=== PATIENT | female | born 1965 | race Caucasian/White ===

== ENCOUNTER → 2017-01-28 | Outpatient (CLI) | payer MEDICARE ==
--- NOTE | 2017-01-28 13:03 | MR ---
EXAMINATION TYPE: MR brain wo/w con DATE OF EXAM: 01/28/2017 COMPARISON: 03/25/2016 HISTORY: white matter changes, short term memory loss TECHNIQUE: Multiplanar, multisequence images of the brain and brainstem is performed without and with IV contras t, utilizing 7 mL intravenous Gadavist . FINDINGS: Diffusion weighted images demonstrate no evidence of a recent infarct or other diffusion ab normality. There is no extra-axial fluid collection or significant white matter signal abnormality. The ventricular system and cisternal spaces are normal in size and appearance. The brain volume is age appropriate. Midline structures demonstrate normal morphology. The craniocervical junction appears within normal limits. Post contrast images demonstrate no abnormal enhancement. Changes of chronic sinusitis noted. Areas of abnormal signal the basal ganglia suggest tiny remote lacunar infarct or prominent Virchow-R obin spaces. WHITE MATTER: There are approximately 40 areas of abnormal signal within the white matter. All measure 5 mm or less. No enhancing lesions. No definite lesions perpendicular to the ventricular system. No callosal lesions. IMPRESSION: 1. Stable nonspecific white matter changes. Differential diagnosis includes remote microvascular isch emia or demyelinating disease. Correlate clinically.
== END | disposition home or self-care (01) ==
LOC: RADMRIMAIN 11:45
PROVIDERS: ATTEND Nurse Practitioner Acute Care
DX: R90.82 White matter disease, unspecified (principal)
CPT/HCPCS: 70553; A9581

== ENCOUNTER → 2017-01-28 | Outpatient (CLI) | payer MEDICARE ==
[2017-01-28 13:10] LABS: Basophils # (A) 0.1 k/uL (0-0.2); Basophils % (A) 1 %; CH 31.4; CHCM 32.9; Eosinophils # (A) 0.2 k/uL (0-0.7); Eosinophils % (A) 2 %; HCT 45.2 % (34.0-46.0); HDW 2.51; HGB 15.1 gm/dL (11.4-16.0); Luc # (Auto) 0.13; Luc % (Auto) 1; Lymphocytes # (A) 1.6 k/uL (1.0-4.8); Lymphocytes % (A) 13 %; MCH 31.9 pg (25.0-35.0); MCHC 33.4 g/dL (31.0-37.0); MCV 95.7 fL (80.0-100.0); Mean Platelet Volume 8.1; Monocytes # (A) 0.5 k/uL (0-1.0); Monocytes % (A) 4 %; Neutrophils # (A) 9.8 k/uL (1.3-7.7); Neutrophils % (A) 80 %; RBC 4.73 m/uL (3.80-5.40); RDW 13.7 % (11.5-15.5); WBC 12.3 k/uL (3.8-10.6); WBC (Perox) 12.77
[2017-01-28 13:19] LABS: ALT 69 U/L (9-52); AST 37 U/L (14-36); Alkaline Phosphatase 120 U/L (38-126); Anion Gap 10 mmol/L; Blood Urea Nitrogen 17 mg/dL (7-17); Calcium 9.4 mg/dL (8.4-10.2); Carbon Dioxide 22 mmol/L (22-30); Chloride 109 mmol/L (98-107); Glucose 105 mg/dL (74-99); Non-African American GFR(MDRD) >60 (>60 ml/min/1.73 sqM); Potassium 4.3 mmol/L (3.5-5.1); Sodium 141 mmol/L (137-145); Total Bilirubin 0.2 mg/dL (0.2-1.3)
[2017-01-28 14:07] LABS: Vitamin B12 482 pg/mL (239-931)
== END | disposition home or self-care (01) ==
LOC: LABWHC1 12:41
PROVIDERS: ATTEND Nurse Practitioner Acute Care
DX: E55.9 Vitamin D deficiency, unspecified (principal); R41.3 Other amnesia
CPT/HCPCS: 36415; 80053; 82306; 82607; 84207; 84439; 84443; 84481; 85025

== ENCOUNTER 2020-11-11 10:57 | Emergency (ER) | payer MEDICARE ==
[2020-11-11 11:03] VITALS: BP 143/75; PULSE 96; RESP 18; TEMP 98
--- NOTE | 2020-11-11 11:20 | ED ---
General Adult HPI - General Chief complaint: Psychiatric Symptoms Stated complaint: Mental Health Time Seen by Provider: 11/11/20 11:00 Source: patient, RN notes reviewed, old records reviewed Mode of arrival: ambulatory Limitations: no limitations - History of Present Illness Initial comments: 55-year-old female sent from the primary care physician for psychiatric evaluation. Patient has not been sleeping. She had tested positive for methadone and barbiturates which she is not prescribed. She denies an intentional misuse of medication. She has no suicidal or homicidal thoughts but she has pressured speech and has not been eating or drinking over the past several days. She was sent for evaluation of manic episode. - Related Data Home Medications Medication Instructions Recorded Confirmed Atorvastatin [Lipitor] 80 mg PO DAILY 01/29/14 05/20/14 Clopidogrel [Plavix] 75 mg PO DAILY 01/29/14 05/21/14 Nitroglycerin Sl Tabs [Nitrostat] 0 mg SUBLINGUAL DIRECTED PRN 01/29/14 05/21/14 PARoxetine [Paxil] 20 mg PO DAILY 01/29/14 05/21/14 QUEtiapine FUMARATE [SEROquel XR] 75 mg PO HS 01/29/14 05/21/14 Aspirin 81 mg PO DAILY 05/20/14 05/21/14 Previous Rx's Medication Instructions Recorded Metoprolol Tartrate [Lopressor] 12.5 mg PO BID #0 02/02/14 Omeprazole [PriLOSEC] 20 mg PO AC-BRKFST #30 cap 02/02/14 Ferrous Sulfate [Feosol] 325 mg PO BID #60 tablet 02/03/14 Ibuprofen [Motrin] 600 mg PO Q6HR PRN #30 tab 05/21/14 Allergies Allergy/AdvReac Type Severity Reaction Status Date / Time codeine Allergy Nausea & Verified 11/11/20 10:58 Vomiting hydrocodone bitartrate Allergy Nausea & Verified 11/11/20 10:58 [From Vicodin] Vomiting Review of Systems ROS Statement: Those systems with pertinent positive or pertinent negative responses have been documented in the HPI. ROS Other: All systems not noted in ROS Statement are negative. Past Medical History Past Medical History: Chest Pain / Angina, GERD/Reflux, GI Bleed, Hyperlipidemia, Hypertension, Myocardial Infarction (HI) Last Myocardial Infarction Date:: 10/2011 History of Any Multi-Drug Resistant Organisms: None Reported Past Surgical History: Heart Catheterization With Stent Additional Past Surgical History / Comment(s): removed half of stomach, cauterizations for bleeding Past Anesthesia/Blood Transfusion Reactions: No Reported Reaction, Blood Transfusion Reaction Date of Last Stent Placement:: 10/2011 Past Psychological History: Anxiety, Depression Smoking Status: Current every day smoker Past Alcohol Use History: None Reported Past Drug Use History: Marijuana - Past Family History Mother Family Medical History: Diabetes Mellitus Additional Family Medical History / Comment(s): aneurysms in back Father Additional Family Medical History / Comment(s): PVD Sister(s) Family Medical History: Cancer General Exam Limitations: no limitations General appearance: alert, anxious Head exam: Present: atraumatic, normocephalic Eye exam: Present: normal appearance, PERRL Neck exam: Present: normal inspection. Absent: tenderness, meningismus Respiratory exam: Present: normal lung sounds bilaterally. Absent: respiratory distress, wheezes Cardiovascular Exam: Present: regular rate, normal rhythm GI/Abdominal exam: Present: soft. Absent: distended, tenderness, guarding Extremities exam: Present: normal inspection, normal capillary refill. Absent: pedal edema Neurological exam: Present: alert, oriented X3 Psychiatric exam: Present: anxious, manic. Absent: suicidal ideation Skin exam: Present: warm, dry, intact Course Vital Signs 11/11/20 10:58 Temperature 98 F Pulse Rate 96 Respiratory 18 Rate Blood Pressure 143/75 O2 Sat by Pulse 100 Oximetry - Reevaluation(s) Reevaluation #1: 11/11/20 11:20 Patient cleared for EPS EKG Findings - EKG Comments: EKG Findings:: EKG: Normal sinus rhythm, rate of 72, OH interval 1:30, QRS duration 84, QTC [address] segment elevation. Medical Decision Making - Medical Decision Making 55-year-old female presenting for psychiatric evaluation, manic episode. Patient is alert, able to give detailed history. She had been seen by EPS and felt to be safe for discharge. She is not suicidal or homicidal. She will continue to follow with her primary care physician. - Lab Data Lab Results 11/11/20 Range/Units 11:36 Urine Opiates Screen Not Detected (NotDetected) Ur Oxycodone Screen Not Detected (NotDetected) Urine Methadone Screen Not Detected (NotDetected) Ur Propoxyphene Screen Not Detected (NotDetected) Ur Barbiturates Screen Detected H (NotDetected) U Tricyclic Antidepress Detected H (NotDetected) Ur Phencyclidine Scrn Not Detected (NotDetected) Ur Amphetamines Screen Not Detected (NotDetected) U Methamphetamines Scrn Not Detected (NotDetected) U Benzodiazepines Scrn Detected H (NotDetected) Urine Cocaine Screen Not Detected (NotDetected) U Marijuana (THC) Screen Detected H (NotDetected) Disposition Clinical Impression: Acute anxiety, Bipolar disorder Disposition: HOME SELF-CARE Condition: Fair Instructions (If sedation given, give patient instructions): Anxiety (ED), Mood Disorders (ED) Is patient prescribed a controlled substance at d/c from ED?: No Referrals: Brandon Suarez MD [Primary Care Provider] - 1-2 days Time of Disposition: 13:24
[2020-11-11] MEDS ORDERED: ONDANSETRON ODT 4 MG TAB PO STA (12:13)
[2020-11-11 12:18] LABS: Phencyclidine Screen,Urine Not Detected (NotDetected); Urn Cannabinoid Scrn Detected (NotDetected)
[2020-11-11 12:19] LABS: Amphetamine Screen,Urine Not Detected (NotDetected); Barbiturate Screen,Urine Detected (NotDetected); Benzodiazepines Screen,Urine Detected (NotDetected); Cocaine Screen,Urine Not Detected (NotDetected); Methadone Screen, Urine Not Detected (NotDetected); Opiate Screen,Urine Not Detected (NotDetected); Oxycodone Screen, Urine Not Detected (NotDetected); Tricyclic Antidepressant,Urine Detected (NotDetected)
== END 2020-11-11 14:27 | disposition home or self-care (01) ==
LOC: EC 10:57
DX: F31.9 Bipolar disorder, unspecified (principal); F41.9 Anxiety disorder, unspecified; F17.200 Nicotine dependence, unspecified, uncomplicated; E78.5 Hyperlipidemia, unspecified; I25.2 Old myocardial infarction; I10 Essential (primary) hypertension; K21.9 Gastro-esophageal reflux disease without esophagitis; Z79.82 Long term (current) use of aspirin; F12.90 Cannabis use, unspecified, uncomplicated
CPT/HCPCS: 80306; 82075; 93005; 99284